=== PATIENT | male | born 1960 | race Caucasian/White ===

== ENCOUNTER 2020-04-19 10:39 | Emergency (ER) | payer OTHER ==
[~2020-04-19] VITALS: Ht 182.9 cm; Wt 142.9 kg
[~2020-04-19 10:39] MED LIST: ANUSOL-HC25 MG RECTAL; ATORVASTATIN CA40 MG PO; CIPROFLOXACIN500 M1 PO; FLOMAX0.4 MG PO; LISINOPRIL10 MG PO; NORCO 5-325 TA1 EAC1 PO; ZOFRAN4 MG PO
[2020-04-19] MEDS ORDERED: OZEMPIC1 MG/0.75 SUBQ (11:07)
[2020-04-19] MEDS ORDERED: ATENOLOL 50MG T50 MG PO (11:07)
[2020-04-19] MEDS ORDERED: JANUMET 50-5001 EACH PO (11:07)
[2020-04-19] MEDS ORDERED: VASCEPA1 GM PO (11:08)
[2020-04-19 11:20] LABS: URINE BILIRUBIN NEGATIVE (Negative); URINE BLOOD 3+ (Negative); URINE CLARITY CLEAR; URINE COLOR YELLOW; URINE GLUCOSE-RANDOM NEGATIVE (Negative); URINE KETONES NEGATIVE (Negative); URINE LEUKOCYTES-REFLEX NEGATIVE (Negative); URINE NITRITE-REFLEX NEGATIVE (Negative); URINE PROTEIN 1+ (Negative); URINE SPECIFIC GRAVITY >= 1.030 (1.005-1.030); URINE UROBILINOGEN 0.2 E.U./dl (0.2-1.0)
[2020-04-19 11:28] LABS: SQUAMOUS 0-3 Few /LPF (0-3); URINE WBC-REFLEX 0-5 Rare /HPF (0-5)
[2020-04-19 11:29] LABS: BACTERIA-REFLEX 1-9 Few /HPF (None Seen); CRYSTALS None Seen /LPF (None Seen); HYALINE CASTS 0-3 Few /LPF (None Seen); MUCUS None Seen strn/LPF (None Seen)
[2020-04-19 11:52] LABS: ABSOLUTE BASOPHILS 0.1 thou/uL (0.0-0.2); ABSOLUTE EOSINOPHILS 0.4 thou/uL (0.0-0.7); ABSOLUTE MONOCYTES 0.9 thou/uL (0.0-1.2); EOSINOPHILS 4.2 %; HEMATOCRIT 43.6 % (42.0-52.0); LYMPHOCYTES 10.6 %; MCH 32.2 pg (26.0-34.0); MCHC 34.4 g/dL (28.0-37.0); MCV 93.7 fL (80.0-100.0); MONOCYTES 9.9 %; MPV 10.2 fl. (7.2-11.1); NUCLEATED RBCS 0 /100WBC; PLATELET COUNT* 216 thou/uL (150-400); POLYS 74.3 %; RBC 4.66 mil/uL (4.50-6.00); RDW-CV 14.8 % (10.5-14.5); WBC 9.4 thou/uL (4.0-11.0)
[2020-04-19 11:56] LABS: CALCIUM 8.7 mg/dL (8.5-10.1); CREATININE 1.3 mg/dL (0.6-1.3); POTASSIUM 4.4 mmol/L (3.5-5.1)
[2020-04-19 12:00] LABS: ALBUMIN 4.1 g/dL (3.4-5.0); TOTAL BILIRUBIN 0.5 mg/dL (<0.1-1.0); TOTAL PROTEIN 8.1 g/dL (6.4-8.2)
[2020-04-19] MEDS ORDERED: NORCO 5-325 TA1 EAC2 PO (12:40)
[2020-04-19] MEDS ORDERED: ZOFRAN ODT4 MG DISSOLVE (12:40)
[2020-04-19] MEDS ORDERED: IBUPROFEN 800800 M1 PO (12:40)
[2020-04-19] MEDS ORDERED: FLOMAX0.4 MG PO (12:40)
[2020-04-19 13:00] VITALS: BP 133/70
--- NOTE | 2020-04-20 09:30 | EKG ---
[place] [address] ELECTROCARDIOGRAM REPORT Name: SHARMILAMAXWELL CRANE Room: [facility]#: [id number] Admission: 04/19/20 Attend Phys: Discharge: 04/19/20 Date of : 62 Date of Service: 04/19/20 1126 Report #: [id number] THIS REPORT FOR: //name// [facility] ED Test Date: 2020-04-19 Test Time: 11:26:22 Pat Name: MAXWELL WAGNER Department: Room: Gender: Ammonia Box Tender: YAIMA : 1960 Requested By: Fidel Clinton Order Number: [id number] MD: Dominic Lott Measurements Intervals [place] Rate: 70 P: 47 AK: 176 QRS: 36 QRSD: 92 T: 53 QT: 383 QTc: 414 Interpretive Statements Sinus rhythm No previous ECG available for comparison Electronically Signed On 04-20-2020 9:30:08 CDT by Dominic Lott [email or web address] <ELECTRONICALLY SIGNED> By: Dominic Lott MD, [facility] 04/20/2030 1126 112 Dominic Lott MD, FACC /EPI
== END 2020-04-19 13:00 | disposition home or self-care (01) ==
LOC: M.ERS 10:39
PROVIDERS: Emergency Medicine Emergency Medical Services
DX: N20.0 Calculus of kidney (principal); R11.2 Nausea with vomiting, unspecified; I10 Essential (primary) hypertension; E11.9 Type 2 diabetes mellitus without complications; Z90.49 Acquired absence of other specified parts of digestive tract; Z98.52 Vasectomy status; Z88.8 Allergy status to other drugs, medicaments and biological substances